=== PATIENT | female | born 1960 | race Caucasian/White ===

== ENCOUNTER → 2018-02-07 | Outpatient (CLI) | payer OTHER | LOC: FIMAGING 09:01 | PROVIDERS: ATTEND Surgery | DX: E21.0 Primary hyperparathyroidism (principal) | CPT/HCPCS: 78070; A9500; A9516 ==

== ENCOUNTER → 2018-08-09 | Outpatient (CLI) | payer OTHER | LOC: FIMAGING 08:56 | PROVIDERS: ATTEND Physician Assistant | PROC: CG111ZZ Planar Nuclear Medicine Imaging of Parathyroid Glands using Technetium 99m (Tc-99m) (ICD-10-PCS; principal; 2018-08-09) | DX: E21.0 Primary hyperparathyroidism (principal); E04.1 Nontoxic single thyroid nodule | CPT/HCPCS: 78070; A9500; A9516 ==

== ENCOUNTER → 2018-08-20 | Outpatient (CLI) | payer OTHER ==
[~2018-08-20] MED LIST: IOPAMIDOL (ISOVUE-300) 100 ML BTL ONE
== END ==
LOC: FIMAGING 12:47
PROVIDERS: ATTEND Physician Assistant
DX: E21.0 Primary hyperparathyroidism (principal); E04.1 Nontoxic single thyroid nodule
CPT/HCPCS: Q9967

== ENCOUNTER 2018-10-02 12:17 | Day surgery (SDC) | payer OTHER ==
[2018-10-02] MEDS ORDERED: BUPIVACAINE/EPI 0.5% 30 ML SDV ONE (12:35)
[2018-10-02] MEDS ORDERED: LR 1,000 ML IV ONE (12:49)
[2018-10-02] MEDS ORDERED: LIDOCAINE 1% 2 ML INJ ID PRN (12:49)
--- NOTE | 2018-10-02 13:03 | PDHPUP ---
History & Physical Update H&P update statement: This history and physical update is based on an assessment of the patient which was completed after admission or registration (within 24 hours), but prior to the surgery/procedure. H&P update: H&P reviewed & patient examined, no change in patient's condition since H&P completed
--- NOTE | 2018-10-02 13:05 | POSTOPPROG ---
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
[2018-10-02] MEDS ORDERED: MIDAZOLAM 2 MG/2 ML VIAL IVP ONE (13:49)
--- NOTE | 2018-10-02 13:53 | PDANEPAE ---
ANE History of Present Illness parathyroidectomy ANE Past Medical History - Cardiovascular History Hx Hypertension: Yes Hx Arrhythmias: No Hx Chest Pain: No Hx Coronary Artery / Peripheral Vascular Disease: No Hx CHF / Valvular Disease: No Hx Palpitations: No - Pulmonary History Hx COPD: No Hx Asthma/Reactive Airway Disease: No Hx Recent Upper Respiratory Infection: No Hx Oxygen in Use at Home: No Hx Sleep Apnea: Yes Sleep Apnea Screening Result - Last Documented: Positive Pulmonary History Comment: PE's on BCP, and after surgeryu - Neurologic History Hx Cerebrovascular Accident: No Hx Seizures: No Hx Dementia: No - Endocrine History Hx Diabetes: Yes Endocrine History Comment: hypothyroidism, - Renal History Hx Renal Disorders: No Renal History Comment: kidney stone - Liver History Hx Hepatic Disorders: No - Neurological & Psychiatric Hx Hx Neurological and Psychiatric Disorders: No - Cancer History Hx Cancer: No - Congenital Disorder History Hx Congenital Disorders: No - GI History Hx Gastrointestinal Disorders: No - Surgical History Prior Surgeries: parathyroidectomy and partial thymectomy march 2018, hysterectomy, sharmila, ankle repair right ANE Review of Systems Review of Systems: - Exercise capacity METS (RN): 4 METS ANE Patient History - Allergies Allergies/Adverse Reactions: No Known Allergies Allergy (Verified 10/02/18 13:19) - Home Medications Home medications: home medication list seen and reviewed Home Medications: Losartan-Hctz 100-12.5 mg Tab 10/02/18 [Last Taken 10/02/18 06:00] - NPO status NPO Status: no food or drink >8 hours NPO Since - Liquids (Date): 10/02/18 NPO Since - Liquids (Time): 09:00 NPO Since - Solids (Date): 10/01/18 NPO Since - Solids (Time): 20:00 - Anes Hx Anes Hx: no prior problems - Smoking Hx Smoking Status: Former smoker - Alcohol Use Alcohol Use: None - Family Anes Hx Family Anes Hx: none Family Hx Anesthesia Complications: none ANE Labs/Vital Signs - Vital Signs Blood Pressure: 154/96 Heart Rate: 56 Respiratory Rate: 17 O2 Sat (%): 95 Height: 167.64 cm Weight: 109.769 kg ANE Physical Exam - Airway Neck exam: FROM Mallampati Score: Class 2 Mouth exam: normal dental/mouth exam - Pulmonary Pulmonary: no respiratory distress - Cardiovascular Cardiovascular: regular rate and rhythym - ASA Status ASA Status: II ANE Anesthesia Plan Anesthesia Plan: general endotracheal anesthesia (BMP for HCTZ and then to the OR if normal)
[2018-10-02] MEDS ORDERED: REMIFENTANIL HCL 1 MG VIAL ONE (14:44)
[2018-10-02] MEDS ORDERED: fentaNYL 100 MCG/2 ML INJ ONE (14:45)
[2018-10-02] MEDS ORDERED: PROPOFOL/EMULSION 500 MG/50 ML BOTTLE IV ONE (14:45)
[2018-10-02] MEDS ORDERED: DEXAMETHASONE 4 MG/ML VIAL ONE ×2 (14:48)
[2018-10-02] MEDS ORDERED: LIDOCAINE 2% 100 MG/5 ML SYR ONE (14:48)
[2018-10-02] MEDS ORDERED: ONDANSETRON 4 MG/2 ML VIAL ONE (14:48)
[2018-10-02] MEDS ORDERED: ePHEDrine SULFATE 25 MG/5 ML SYR ONE (15:11)
[2018-10-02] MEDS ORDERED: PHENYLEPHRINE HCL 100 MCG/ML SYR IVP PRN (16:31)
[2018-10-02] MEDS ORDERED: ACETAMINOPHEN 500 MG TAB PO PRN (16:31)
[2018-10-02] MEDS ORDERED: LR 500 ML IV PRN (16:31)
[2018-10-02] MEDS ORDERED: PROMETHAZINE HCL 25 MG/ML INJ IVP PRN (16:31)
[2018-10-02] MEDS ORDERED: ONDANSETRON 4 MG/2 ML VIAL IVP PRN (16:31)
[2018-10-02] MEDS ORDERED: fentaNYL 100 MCG/2 ML INJ IVP PRN (16:31)
[2018-10-02] MEDS ORDERED: MEPERIDINE 25 MG/0.5 ML AMP IVP PRN (16:31)
[2018-10-02] MEDS ORDERED: ALBUTEROL 3 ML DEYVIAL IH PRN (16:31)
[2018-10-02] MEDS ORDERED: oxyCODONE IR 5 MG TAB PO PRN (16:31)
[2018-10-02] MEDS ORDERED: METOCLOPRAMIDE 10 MG/2 ML VIAL IVP PRN (16:31)
[2018-10-02] MEDS ORDERED: LABETALOL HCL 5 MG/ML 20 ML MDV IVP PRN (16:31)
[2018-10-02] MEDS ORDERED: NALOXONE HCL 0.4 MG/ML INJ IVP PRN (16:31)
[2018-10-02] MEDS ORDERED: DEXAMETHASONE 4 MG/ML VIAL IVP PRN (16:31)
[2018-10-02] MEDS ORDERED: HYDROCODONE/APAP 5/325 TAB PO PRN (16:31)
--- NOTE | 2018-10-02 16:32 | POSTANESTH ---
Post Anesthetic Evaluation Cardiovascular Status: Normal, Stable Respiratory Status: Similar to Pre-op Cond., Tx Decrease in SpO2 Level of Consciousness/Mental Status: Can Participate in Eval Pain Control: Adequate, Prn Tx Ordered Nausea/Vomiting Control: Adequate, Prn Tx Ordered Complications Possibly Related to Anesthesia: None Noted
[2018-10-02] MEDS ORDERED: HYDROCODONE/APAP 5/325 TAB ONE (17:58)
[2018-10-02 18:20] VITALS: BP 164/99
--- NOTE | 2018-10-03 05:06 | GOP ---
DATE OF OPERATION: 10/02/2018 SURGEON: Berto Carreno MD SQUAD SERGEANT: Porsche Walker. ANESTHESIA: General. ANESTHESIOLOGIST: Madhu Queen MD. PREOPERATIVE DIAGNOSIS: Persistent primary hyperparathyroidism. POSTOPERATIVE DIAGNOSIS: Persistent primary hyperparathyroidism. PROCEDURE PERFORMED: Parathyroidectomy. FINDINGS: INDICATIONS: A 58-year-old female with a history of primary hyperparathyroidism. She underwent a pr ior attempted parathyroidectomy. She was found to have normal left upper and lower pole glands; the lower within the thymus, the upper in normal anatomic location, as well as a normal right upper pole gland in normal anatomic location. A right lower pole gland was unable to be identified, despite exh austive efforts. Intraoperative jugular venous sampling was obtained, showing a large gradient withi n the right jugular vein. She underwent further advanced imaging including 4-dimensional CT scanning , showing a suspicious abnormality high within the right carotid sheath. She is undergoing a redo pa rathyroidectomy today for a suspect under-descended, right lower pole, adenoma. Risks and benefits w ere explained including bleeding, infection, persistent and recurrent hyperparathyroidism, hypoparath yroidism, recurrent laryngeal nerve injury, need for additional surgical intervention. All questions were answered. She desires to proceed. A administrative assistant office manager is standard and necessary, and customa ry for the safe performance of this procedure. DESCRIPTION OF PROCEDURE: After general anesthesia were induced, the neck was pre-injected with 0.5% Marcaine with epinephrine. An oblique incision was created at the area of interest high within the right upper neck. The platysma muscle was divided. The anterior border of the sternocleidomastoid m uscle was divided. The carotid sheath was identified. The area of interest was multiple centimeters north of the facial vein branch. The carotid artery was dissected medially, as suggested on preop, the read of CT imaging, was an enlarged clinical parathyroid adenoma encased within a conglomeration of lymphoid-appearing fat. The gland was dissected back toward its feeding vasculature. The vagus n erve was preserved throughout the dissection. The vasculature was divided using electrocautery. The specimen was removed from the neck and sent for frozen sectioning. This was confirmative of parathy roid tissue. Preoperative parathyroid hormone level was 135. Five, 10, and 15-minute values were 73 , 40, and 29, having seen a satisfactory drop in levels as well as confirmation of parathyroid tissue , clinically suspected adenoma. The neck was closed in layers with absorbable sutures followed by De rmabond. The patient was taken to recovery room, extubated uneventfully. Copy requested to: Sil Dwyer MD [facility] /[id number]/MODL
== END 2018-10-02 18:27 | disposition home or self-care (01) ==
LOC: FSGY 12:17
PROVIDERS: ATTEND Surgery
DX: E21.0 Primary hyperparathyroidism (principal); D35.1 Benign neoplasm of parathyroid gland; D15.0 Benign neoplasm of thymus; I10 Essential (primary) hypertension; G47.30 Sleep apnea, unspecified; E04.1 Nontoxic single thyroid nodule; E03.9 Hypothyroidism, unspecified; Z87.442 Personal history of urinary calculi
CPT/HCPCS: J1100; J2001; J2250; J2405; J2704; J3010